=== PATIENT | male | born 1950 | race Caucasian/White ===

== ENCOUNTER 2022-01-08 11:03 | Inpatient (IN) | payer MEDICARE, BC ==
[~2022-01-08] VITALS: Ht 175.3 cm; Wt 68.0 kg
[2022-01-08] MEDS ORDERED: ATOR80TA PO (11:17)
[2022-01-08] MEDS ORDERED: ROBAXIN PO (11:17)
[2022-01-08] MEDS ORDERED: SERT100T PO (11:17)
[2022-01-08] MEDS ORDERED: SENN-18 PO (11:17)
[2022-01-08] MEDS ORDERED: LAMO150T6 PO (11:17)
[2022-01-08] MEDS ORDERED: ASPI-612 PO (11:17)
[2022-01-08] MEDS ORDERED: OXYC10TA49 PO (11:17)
[2022-01-08] MEDS ORDERED: DULA1.5P SQ (11:17)
[2022-01-08] MEDS ORDERED: LOSA50TA39 PO (11:17)
[2022-01-08] MEDS ORDERED: METF-441 PO (11:17)
[2022-01-08] MEDS ORDERED: OMEP40CA21 PO (11:17)
[2022-01-08] MEDS ORDERED: QUET100T PO (11:17)
--- NOTE | 2022-01-08 12:03 | NUR ---
Called report to BERTRAM Meza
[2022-01-08] MEDS ORDERED: MAGNESIUM HYDROXIDE 30 ML LIQUID UDC PO PRN (12:45)
[2022-01-08] MEDS ORDERED: MAG HYDROX/AL HYDROX/SIMETH 30 ML LIQUID UDC PO PRN (12:45)
[2022-01-08] MEDS ORDERED: BLOOD SUGAR DIAGNOSTIC 1 EACH STRIP VI ONE (13:00)
[2022-01-08] MEDS ORDERED: DEXTROSE 50% 50 ML DISP.SYRIN IV PRN (14:45)
[2022-01-08] MEDS ORDERED: METH-806 PO (14:45)
[2022-01-08 16:03] VITALS: BP 138/79
--- NOTE | 2022-01-08 16:54 | NUR ---
GPS: RECEIVED A REPORT FROM BERTRAM CHACON AT ER ABOUT THE 71YO MALE FROM [facility] FROM HOME. PT ADMITTED ON 5150 FOR GRAVE DISABILITY. PER PT, HE ADMITTED LOSING OVER 50LBS DUE TO PT BELIEFS WHICH ARE BIZARRE DELUSIONS. 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 PT CAME 1400 FROM ER, UPON FACE TO FACE, PT IS ABLE TO ANSWER SOME QUESTIONS REGARDING HIS SUBSTANCE ABUSE USE, DATE HE USED [place] WAS YESTERDAY 01/07/22. PT WITH EPISODE OF CONFUSION, DISORIENTED TO PLACE AND DATE. PT THOUGHT HE'S AT [facility]. PT SEEMS FORGETFUL, RE-ORIENTED ALWAYS TO HIS ROOM. GETTING TO OTHER PT ROOM AND GETTING OTHER PT STUFF. PT SEEMS PARANOID AND GUARDED. PT CAME TELLING CUFF MATCHER THAT, "I HAVE TO BE AT HOME NOW BECAUSE I HAVE TO PREPARE FOR A GREEN PARTY AND PEOPLE ARE COMING TO MY HOUSE. NOT FOCUS TO CONVERSATION. PT SKIN INTACT, PRECAUTION TO AWOL. WALKS STEADY. PT IS ON FULL CODE. PSYCHIATRIST SEEN PT ALREADY AND WOMEN'S LACROSSE COACH MADE AWARE. PT RIGHT HAND BOOKLET GIVEN AND ADMISSION FORMS SIGNED AND ALL BELONGINGS INVENTORIED AND CONTRABANDS REMOVED AND VALUABLES PLACED IN SAFE.
[2022-01-08] MEDS: DIVALPROEX 250 MG TABLET.DR PO SCH ×2 (17:00→17:52)
[2022-01-08] MEDS: BLOOD SUGAR DIAGNOSTIC 1 EACH STRIP VI SCH ×2 (17:52→20:22)
[2022-01-08] MEDS: ASPIRIN 325 MG TABLET PO SCH (17:52)
[2022-01-08] MEDS: METFORMIN HCL 850 MG TABLET PO SCH (17:53)
--- NOTE | 2022-01-08 18:38 | NUR ---
GPS: PT ALREADY GIVEN THE DEPAKOTE DOSE AT 1700 FOR SCHEDULE TIME OF 1400. NON-ADMIN THE 1700 SCHEDULE.
[2022-01-08 19:56] VITALS: BP 134/70
[2022-01-08] MEDS ORDERED: OLANZAPINE 10 MG VIAL IM ONE (20:00)
[2022-01-08] MEDS: ATORVASTATIN 40 MG TABLET PO SCH (20:22)
[2022-01-08] MEDS: SENNOSIDES 1 TABLET PO SCH (20:25)
[2022-01-08] MEDS: TEMAZEPAM 7.5 MG CAPSULE PO PRN (20:26)
[2022-01-08] MEDS ORDERED: LAMOTRIGINE 100 MG TABLET PO SCH (21:00)
[2022-01-08] MEDS ORDERED: QUETIAPINE FUMARATE 25 MG TABLET PO SCH (21:00)
[2022-01-09] MEDS: LORAZEPAM 0.5 MG TABLET PO PRN ×3 (00:35→16:40)
[2022-01-09] MEDS: QUETIAPINE FUMARATE 25 MG TABLET PO PRN ×3 (00:36→20:04)
--- NOTE | 2022-01-09 04:40 | NUR ---
Received patient in the hallway, looking unkempt, restless, and pacing the hallway going in from room to room. Patient A&0x2. Remind patient of the unit rules, unable to comprehend instructions d/t manifestation of manic behavior. Patient going in to the trash and making delusional comments about him waiting for a police cadet and asks the telegraphic typewriter operator chief to dial 911 in manic state. Redirect patient to realistic environment, also remind patient that actions have set limits. Patient in incongruent and labile mood. Patient at 2000, manic behavior is observed to be escalating as patient starts to bother other peers putting them at risk for harm. Patient also shows aggressive and increasing restless behavior. attempt to talk to patient in calm and non- threatening manner, however patient appears confused and incoherent. @2030 Consultation with the psychiatrist done with report of the current patients condition of high potential for violence and threatening physical harm to environment w/c could lead to injury. then Orders for Zyprexa 5mg IM x1 stat. Explained to patient the need for medication intervention for the behavior as per DrColins order, patient understanding of the plan. Zyprexa 5mg Im then given to patient. @2200 Patient starts to calm down, cooperative and went on to rest and sleeps. @2300 patient gets out bed and strolling the hallway trying to go in the nurse's station. Place patient to a safe area. Patient appears to be more re-directable at this time. Patient also agrees to shower. Patient was led back to his room to rest, however after 20 minutes was found wandering in the room going from BED A TO BED C disturbing his sleeping peers. Switch room from 145B to 141B. Patient given Ativan prn. Patient appears to have unsteady gait so placed to [facility] for safety. @0415 patient went to his room w/ the telegraphic typewriter operator chief and other nurse, patient made a hypersexual comment. Remind patient such comment will not be tolerated. @0430 observed patient to be sleeping in his room.
[2022-01-09] MEDS: PANTOPRAZOLE SODIUM 40 MG TABLET.DR PO SCH (06:06)
[2022-01-09] MEDS: BLOOD SUGAR DIAGNOSTIC 1 EACH STRIP VI SCH ×4 (06:30→20:12)
[2022-01-09 07:43] LABS: HEMATOCRIT 46.2 % (36.7-47.1); MEAN CORPUSCULAR HEMOGLOBIN 31.7 uug (23.8-33.4); MEAN CORPUSCULAR VOLUME 91.7 fL (73.0-96.2); PLATELET COUNT (AUTO) 160 K/uL (152-348)
[2022-01-09 07:49] LABS: CREATININE 0.7 mg/dL (0.6-1.3); POTASSIUM 4.2 mmol/L (3.5-5.1)
[2022-01-09] MEDS: DIVALPROEX 250 MG TABLET.DR PO SCH ×3 (08:05→16:40)
[2022-01-09] MEDS: METFORMIN HCL 850 MG TABLET PO SCH ×2 (08:05→18:00)
[2022-01-09] MEDS: LOSARTAN POTASSIUM 50 MG TABLET PO SCH (08:06)
[2022-01-09] MEDS: ASPIRIN 325 MG TABLET PO SCH (08:07)
[2022-01-09 08:47] VITALS: BP 141/60
--- NOTE | 2022-01-09 09:27 | NUR ---
pt received ambulating unit hallway. Confused and disoriented. Hypersexual with speech content. Manic and labile. Pt requires frequent redirection and reorientation.
[2022-01-09] MEDS: risperiDONE 1 MG TABLET PO SCH ×2 (10:35→20:04)
[2022-01-09] MEDS: INSULIN REGULAR, HUMAN 300 UNIT/3 ML VIAL SQ PRN (12:00)
[2022-01-09] MEDS ORDERED: OLANZAPINE 5 MG TABLET PO ONE (12:00)
--- NOTE | 2022-01-09 15:12 | NUR ---
PUNEET Initial Discharge Note: Pt is admitted to [facility] on a 5250 hold for unable to take care of own food, clothing or residential. Pt currently resides at [address] [place] [address]. PUNEET will continue to follow-up with pt's family contact for further information regarding pt's current status and discharge plan. Pt's face sheet states pt has a , Casie ([phone]), however pt is unable to confirm contact information. PUNEET will continue to work with pt, family and MD to ensure a safe and proper discharge plan.
--- NOTE | 2022-01-09 15:19 | NUR ---
Firearms Report: Rat Poisoner completed and submitted a [employer] firearms report for 5150 grave disability certifications. A copy of report has been placed in patient chart.
[2022-01-09 16:00] VITALS: BP 129/69
[2022-01-09 19:45] VITALS: BP 145/67
[2022-01-09] MEDS: ATORVASTATIN 40 MG TABLET PO SCH (20:04)
[2022-01-09] MEDS: SENNOSIDES 1 TABLET PO SCH (20:04)
[2022-01-09] MEDS: TEMAZEPAM 7.5 MG CAPSULE PO PRN (22:38)
[2022-01-10] MEDS: LORAZEPAM 0.5 MG TABLET PO PRN ×2 (03:05→10:17)
--- NOTE | 2022-01-10 03:06 | NUR ---
GPS: Pt.awake at this time. Confused,disoriented and disorganized. Anxious and starting to wander along the hallway. Reality re-orientation provided. Re-directed prn. Assisted back to his room and encouraged to go back to sleep. Ativan 0.5mg given PO. Will monitor effectiveness. Unit rules explained several times.
[2022-01-10] MEDS: QUETIAPINE FUMARATE 25 MG TABLET PO PRN ×2 (05:19→16:05)
[2022-01-10] MEDS: PANTOPRAZOLE SODIUM 40 MG TABLET.DR PO SCH (06:02)
[2022-01-10] MEDS: BLOOD SUGAR DIAGNOSTIC 1 EACH STRIP VI SCH ×4 (06:24→19:53)
[2022-01-10 07:58] VITALS: BP 141/82
[2022-01-10] MEDS: risperiDONE 1 MG TABLET PO SCH ×2 (08:01→20:03)
[2022-01-10] MEDS: ASPIRIN 325 MG TABLET PO SCH (08:01)
[2022-01-10] MEDS: METFORMIN HCL 850 MG TABLET PO SCH ×2 (08:01→18:05)
[2022-01-10] MEDS: LOSARTAN POTASSIUM 50 MG TABLET PO SCH (08:01)
[2022-01-10] MEDS: DIVALPROEX 250 MG TABLET.DR PO SCH ×3 (08:01→16:05)
[2022-01-10] MEDS: GLUCERNA SHAKE VANILLA 237 ML CAN PO SCH (10:00)
[2022-01-10 14:34] VITALS: BP 95/59
[2022-01-10 19:29] VITALS: BP 136/75
[2022-01-10] MEDS: SENNOSIDES 1 TABLET PO SCH (20:03)
[2022-01-10] MEDS: ATORVASTATIN 40 MG TABLET PO SCH (20:03)
[2022-01-10] MEDS: TEMAZEPAM 7.5 MG CAPSULE PO PRN (21:38)
[2022-01-11] MEDS: QUETIAPINE FUMARATE 25 MG TABLET PO PRN (02:40)
[2022-01-11] MEDS: BLOOD SUGAR DIAGNOSTIC 1 EACH STRIP VI SCH ×4 (05:54→20:02)
[2022-01-11] MEDS: PANTOPRAZOLE SODIUM 40 MG TABLET.DR PO SCH (06:06)
[2022-01-11 08:04] VITALS: BP 131/72
[2022-01-11] MEDS: METFORMIN HCL 850 MG TABLET PO SCH ×2 (08:25→17:02)
[2022-01-11] MEDS: LOSARTAN POTASSIUM 50 MG TABLET PO SCH (08:25)
[2022-01-11] MEDS: DIVALPROEX 250 MG TABLET.DR PO SCH ×3 (08:26→17:00)
[2022-01-11] MEDS: risperiDONE 1 MG TABLET PO SCH ×2 (08:27→20:09)
[2022-01-11] MEDS: GLUCERNA SHAKE VANILLA 237 ML CAN PO SCH (08:28)
[2022-01-11] MEDS: ASPIRIN 325 MG TABLET PO SCH (08:33)
--- NOTE | 2022-01-11 15:16 | NUR ---
patient is Needs intrusive needs frequent constant re-direction and re-assurance from staff at all time . No aggressive behavior noted. stay in activity room at all time , compliant with medication , confused and disoriented with poor insight and poor judgement .
[2022-01-11 16:34] VITALS: BP 123/72
[2022-01-11 19:45] VITALS: BP 128/68
[2022-01-11] MEDS: ATORVASTATIN 40 MG TABLET PO SCH (20:09)
[2022-01-11] MEDS: SENNOSIDES 1 TABLET PO SCH (20:10)
[2022-01-11] MEDS: TEMAZEPAM 7.5 MG CAPSULE PO PRN (21:52)
[2022-01-12] MEDS: QUETIAPINE FUMARATE 25 MG TABLET PO PRN (01:36)
[2022-01-12] MEDS: LORAZEPAM 0.5 MG TABLET PO PRN (01:36)
[2022-01-12] MEDS: PANTOPRAZOLE SODIUM 40 MG TABLET.DR PO SCH (06:06)
[2022-01-12] MEDS: BLOOD SUGAR DIAGNOSTIC 1 EACH STRIP VI SCH ×4 (06:06→20:35)
--- NOTE | 2022-01-12 06:24 | NUR ---
GPS: Pt.slept 4.30 last night. Anxious,disorganized but easily re-directed. No aggressive behavior noted. Safety emphasized. Will continue to monitor.
[2022-01-12 07:54] VITALS: BP 135/87
[2022-01-12] MEDS: METFORMIN HCL 850 MG TABLET PO SCH ×2 (08:24→17:19)
[2022-01-12] MEDS: ASPIRIN 325 MG TABLET PO SCH (08:24)
[2022-01-12] MEDS: DIVALPROEX 250 MG TABLET.DR PO SCH ×3 (08:24→17:19)
[2022-01-12] MEDS: risperiDONE 1 MG TABLET PO SCH ×2 (08:24→12:25)
[2022-01-12] MEDS: GLUCERNA SHAKE VANILLA 237 ML CAN PO SCH (08:25)
[2022-01-12] MEDS: LOSARTAN POTASSIUM 50 MG TABLET PO SCH (08:25)
[2022-01-12] MEDS ORDERED: risperiDONE 1 MG TABLET PO SCH ×2 (13:00→21:00)
[2022-01-12 14:36] VITALS: BP 117/72
--- NOTE | 2022-01-12 15:43 | NUR ---
received patient is Needs intrusive needs argument frequent constant re-direction and re-assurance from staff at all time . No aggressive behavior noted. stay in activity room at all time , compliant with medication , confused and disoriented with poor insight and poor judgement .
[2022-01-12] MEDS: INSULIN REGULAR, HUMAN 300 UNIT/3 ML VIAL SQ PRN (17:21)
[2022-01-12 19:00] VITALS: BP 114/64
[2022-01-12 20:00] VITALS: BP 114/64
[2022-01-12] MEDS: ATORVASTATIN 40 MG TABLET PO SCH (20:34)
[2022-01-12] MEDS: SENNOSIDES 1 TABLET PO SCH (20:34)
--- NOTE | 2022-01-12 21:00 | NUR ---
RECEIVED PATIENT IN THE DAY ROOM WATCHING TV. UPON APPROACHED, HE IS NOTED HYPERVERBAL, GRANDIOSE DELUSIONAL THINKING. 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 WE ARE WORKING ON A FEW BIG CASES THAN ARE GOING TO BLOW YOUR MIND. IT WILL BE BIG". PATIENT WAS ALSO NOTED WITH POOR INSIGHT AND JUDGMENT, "I AM HERE BECAUSE THEY BROUGHT ME AGAINST MY WILL. I AM NOT SUPPOSED TO BE HERE AND I WILL LEAVE SOON". PATIENT WAS REASSURED AND GIVEN A REALITY CHECKS. SAFETY AND FALL PRECAUTION IN PLACE. PO FLUID AND SNACKS GIVEN. BGL ACCU CHECK DONE 106. WILL CONTINUE TO MONITOR.
[2022-01-13 07:18] LABS: HEMATOCRIT 42.7 % (36.7-47.1); MEAN CORPUSCULAR HEMOGLOBIN 32.2 uug (23.8-33.4); MEAN CORPUSCULAR VOLUME 91.2 fL (73.0-96.2); PLATELET COUNT (AUTO) 127 K/uL (152-348)
[2022-01-13 07:41] LABS: BILIRUBIN,TOTAL 0.9 mg/dL (0.2-1.0); CREATININE 0.7 mg/dL (0.6-1.3); TOTAL PROTEIN, SERUM 6.6 g/dL (6.4-8.2)
[2022-01-13] MEDS: BLOOD SUGAR DIAGNOSTIC 1 EACH STRIP VI SCH ×3 (07:41→16:22)
[2022-01-13] MEDS: PANTOPRAZOLE SODIUM 40 MG TABLET.DR PO SCH (07:41)
[2022-01-13 08:33] VITALS: BP 132/72
[2022-01-13] MEDS: DIVALPROEX 250 MG TABLET.DR PO SCH ×3 (08:52→17:30)
[2022-01-13] MEDS: METFORMIN HCL 850 MG TABLET PO SCH ×2 (08:52→17:30)
[2022-01-13] MEDS: risperiDONE 1 MG TABLET PO SCH ×2 (08:52→12:25)
[2022-01-13] MEDS: ASPIRIN 325 MG TABLET PO SCH (08:52)
[2022-01-13] MEDS: LOSARTAN POTASSIUM 50 MG TABLET PO SCH (08:53)
--- NOTE | 2022-01-13 09:00 | NUR ---
Received patient in the day room. he is noted A/O x 3, continue hyperverbal, grandiose, attention seeker with poor insight and judgement into his admission to MHU. Patient slept for approx 3.15 hr through the night. he refused sleeping pill last night. However, patient is able to comply with all his routine medications. Patient v/s are stable, he is reassured for his safety. safety and fall precaution in place. will continue to monitor.
[2022-01-13] MEDS: GLUCERNA SHAKE VANILLA 237 ML CAN PO SCH (09:03)
[2022-01-13 16:01] VITALS: BP 145/70
[2022-01-13] MEDS: SENNOSIDES 1 TABLET PO SCH (20:54)
[2022-01-13] MEDS: ATORVASTATIN 20 MG TABLET PO SCH (20:54)
[2022-01-13] MEDS: risperiDONE 2 MG TABLET PO SCH (20:54)
[2022-01-13 20:57] VITALS: BP 110/65
[2022-01-13] MEDS ORDERED: risperiDONE 1 MG TABLET PO SCH (21:00)
[2022-01-13] MEDS: LORAZEPAM 0.5 MG TABLET PO PRN (22:34)
--- NOTE | 2022-01-14 01:58 | NUR ---
PATIENT RECEIVED IN ACTIVITIES ROOM WATCHING TELEVISION AND INTERACTING WITH HIS PEERS. PATIENT IS ALERT/ORIENTED X3 AND IS ABLE TO MAKE HIS NEEDS KNOWN. PATIENT IS COMPLAINT WITH MEDICATION. PATIENT IS HYPERVERBAL AT TIMES. PATIENT IN NO APPARENT DISTRESS, NO AGGRESSIVE BEHAVIOR NOTED, AND PATIENT DENIES PAIN AT THIS TIME. SAFETY MEASURES RENDERED, BED IN LOWEST POSITION, BED LOCKED, AND BED ALARM ON WHILE IN BED.
[2022-01-14] MEDS: PANTOPRAZOLE SODIUM 40 MG TABLET.DR PO SCH (06:23)
[2022-01-14] MEDS: DIVALPROEX 250 MG TABLET.DR PO SCH ×2 (08:14→13:09)
[2022-01-14] MEDS: LOSARTAN POTASSIUM 50 MG TABLET PO SCH (08:14)
[2022-01-14] MEDS: risperiDONE 1 MG TABLET PO SCH ×3 (08:14→17:38)
[2022-01-14] MEDS: METFORMIN HCL 500 MG TABLET PO SCH ×2 (08:14→17:38)
[2022-01-14] MEDS: GLUCERNA SHAKE VANILLA 237 ML CAN PO SCH (08:15)
[2022-01-14] MEDS: ASPIRIN 325 MG TABLET PO SCH (08:15)
[2022-01-14 08:45] VITALS: BP 148/81
--- NOTE | 2022-01-14 09:40 | NUR ---
GPS: RECEIVED PT AT THE ACTIVITY ROOM, LIKES WATCHING TV AND HAVING CONVERSATION WITH PEERS. PARTICIPATES WITH GROUP ACTIVITY. PT WITH EPISODE OF YELLING WHEN OTHER CONFUSED PT WENT INTO HIS ROOM. DENIES ANY PAIN. COMPLIANT WITH MEDS AND CARE.
[2022-01-14 16:00] VITALS: BP 114/70
[2022-01-14] MEDS: DIVALPROEX 500 MG TABLET.DR PO SCH (17:38)
--- NOTE | 2022-01-14 18:09 | NUR ---
GPS: PT LIKES STAYING IN ACTIVITY ROOM WATCHING TV. PT LIKES COMPLAINING WITH OTHER PT. PT ATTENTION SEEKER. VERY INTRUSIVE. PT HAD A [facility] HEARING TODAY 5250 14 DAY HOLD AND PT FILED A WRIT PETITION TO SUPERIOR COURT AT 1620 THROUGH FAX. PSYCHIATRIST AND RAVEN MADE AWARE. NO NEW ORDER FROM PSYCHIATRIST.
[2022-01-14 19:43] VITALS: BP 118/75
[2022-01-14] MEDS: SENNOSIDES 1 TABLET PO SCH (20:07)
[2022-01-14] MEDS: ATORVASTATIN 20 MG TABLET PO SCH (20:07)
[2022-01-14] MEDS: risperiDONE 2 MG TABLET PO SCH (20:07)
[2022-01-14] MEDS: TEMAZEPAM 7.5 MG CAPSULE PO PRN (22:09)
[2022-01-15] MEDS: PANTOPRAZOLE SODIUM 40 MG TABLET.DR PO SCH (06:30)
[2022-01-15 08:08] VITALS: BP 134/71
[2022-01-15] MEDS: METFORMIN HCL 500 MG TABLET PO SCH ×2 (08:44→16:53)
[2022-01-15] MEDS: ASPIRIN 325 MG TABLET PO SCH (08:45)
[2022-01-15] MEDS: DIVALPROEX 250 MG TABLET.DR PO SCH ×2 (08:45→13:45)
[2022-01-15] MEDS: LOSARTAN POTASSIUM 50 MG TABLET PO SCH (08:45)
[2022-01-15] MEDS: risperiDONE 1 MG TABLET PO SCH ×3 (08:45→16:51)
[2022-01-15] MEDS: GLUCERNA SHAKE VANILLA 237 ML CAN PO SCH (08:46)
--- NOTE | 2022-01-15 11:38 | NUR ---
SNF Referral: Marketing Research Coordinator faxed patient's referral packet including: History and Physical, Consultation, Progress Notes, Medication List and Labs to the following facilities for review and possible mcc placement: [facility] nursing [address] [address] .
--- NOTE | 2022-01-15 14:13 | NUR ---
PUNEET Firearms Police Report: This feature writer contacted the [place] [employer] ([phone]) and spoke with dispatch ID #[id number] and stated that the pt's daughter informed the SW that the pt's roommate has a firearm in the house. Glendy stated that she last heard the pt stating to her that the gun is unlocked and accessible. Glendy also reported that she is concerned for the pt using the firearm in the future since pt has verbalized to Glendy of danger to self 9 years ago. PUNEET stated this information to the Police station and informed that Glendy is concerned for the firearm as she cannot confirm if the gun is locked or unlocked. Dispatch #[id number] stated that they are familiar with this case and police were sent to pt's address [address] [place] [id number] and the police did not book any firearms as there were no concerns reported per dispatch. PUNEET asked to speak with a superintendent police for further information and dispatch stated this is the only documented information available. PUNEET informed MD, day care supervisor and left a voicemail for a call back for pt's daughter, Glendy ([phone]) for further information and discharge details.
[2022-01-15 16:26] VITALS: BP 110/55
[2022-01-15] MEDS: DIVALPROEX 500 MG TABLET.DR PO SCH (16:51)
--- NOTE | 2022-01-15 17:33 | NUR ---
GPS: PT WRIT PETITION FORM CONFIRMATION RECEIVED THROUGH FAX MESSAGE. STAFF FROM [facility] CALLED TO NOTIFY ABOUT THE HEARING TOMORROW. INFORMED STAFF THAT PT WILL BE DISCHARGE TOMORROW PER DR FERRARA. [facility] MADE AWARE AND RAVEN ALSO NOTIFIED. CONFIRMATION FORM ATTACHED IN PT CHART.
--- NOTE | 2022-01-15 17:36 | NUR ---
PT SEEN STAYED MOST OF THE TIME AT THE ACTIVITY ROOM WITH OTHER PT WATCHING TV. PACING ALONG THE HALLWAY, MAKING HIMSELF PRESENT FROM THE STAFF. SOMETIMES ATTENTION SEEKER. NO AGITATION NOTED AT THIS TIME. DENIES PAIN OR DISCOMFORT. COMPLIANT WITH MEDS. PT REFUSED TAKING A SHOWER AFTER STAFF OFFERED IT.
[2022-01-15 20:00] VITALS: BP 114/62
[2022-01-15] MEDS: risperiDONE 2 MG TABLET PO SCH (20:13)
[2022-01-15] MEDS: SENNOSIDES 1 TABLET PO SCH (20:13)
[2022-01-15] MEDS: ATORVASTATIN 20 MG TABLET PO SCH (20:13)
[2022-01-15] MEDS: TEMAZEPAM 7.5 MG CAPSULE PO PRN (20:14)
[2022-01-16] MEDS: LORAZEPAM 0.5 MG TABLET PO PRN (01:29)
[2022-01-16] MEDS: PANTOPRAZOLE SODIUM 40 MG TABLET.DR PO SCH (06:13)
--- NOTE | 2022-01-16 06:23 | NUR ---
GPS NOTES: patient remain compliant with medications. PRN restoril and ativan given with semi-effectivity. Patient to be d/c today. Covid robinson done with negative result
[2022-01-16 07:38] VITALS: BP 123/64
[2022-01-16 08:37] VITALS: BP 123/64
[2022-01-16] MEDS: METFORMIN HCL 500 MG TABLET PO SCH (08:37)
[2022-01-16] MEDS: DIVALPROEX 250 MG TABLET.DR PO SCH (08:37)
[2022-01-16] MEDS: ASPIRIN 325 MG TABLET PO SCH (08:37)
[2022-01-16] MEDS: risperiDONE 1 MG TABLET PO SCH (08:37)
[2022-01-16] MEDS: GLUCERNA SHAKE VANILLA 237 ML CAN PO SCH (08:37)
[2022-01-16] MEDS: LOSARTAN POTASSIUM 50 MG TABLET PO SCH (08:37)
--- NOTE | 2022-01-16 09:44 | NUR ---
SW Discharge Note: Pt will be discharged to [facility] [address] [place] [address] ([phone]) via Ambulance transportation at 11AM. PUNEET spoke with admin coordinator, Dakota at the facility who states they are ready to accept the patient today. Pt is aware and agreeable with discharge plans. Pts daughter, Glendy ([phone]) is aware and agreeable with the discharge plan. Pt is alert and oriented x2(name and location), is unable to plan for self-care at this time; however, is willing to accept care at SNF. Pt is aware he is in a hospital, however pt needs constant reminder that pt is in a mental health unit. Pt denies any suicidal or homicidal ideation. Pt will follow-up at the facility with Psychiatrist, Dr. Rahman and Final Cleaner, Dr. Galvez. Pts daughter, Glendy informed SW that pt also has an outpatient psychiatrist, Dr. Celso Ray ([phone]) in [facility] who is a very familiar with pts hx. Pt presents with calm mood and congruent affect. PHARMACY: [facility] ([phone]) [address] [place] [address].
--- NOTE | 2022-01-16 11:36 | NUR ---
GPS: PT WAD DISCHARGE TODAY AND WILL BE ADMITTED TO [facility]. PICKED UP BY AMBULANCE. ALERT AND VERBALLY RESPONSIVE. SKIN INTACT. DENIES PAIN OR DISCOMFORT. NO AGITATION NOTED. PT COOPERATIVE WITH CARE AND COMPLIANT WITH MEDS. ALL BELONGINGS GIVEN AND SIGNED FOR. ENDORSED TO SNF ADMITTING NURSE. PT WILL BE EXPECTED.
== END 2022-01-16 11:40 | DRG 885 ==
LOC: ER 11:03 → GPS 12:14
PROVIDERS: ADMIT Psychiatry & Neurology Psychosomatic Medicine
DX: F25.0 Schizoaffective disorder, bipolar type (principal); F01.50 Vascular dementia, unspecified severity, without behavioral disturbance, psychotic disturbance, mood disturbance, and anxiety; E11.9 Type 2 diabetes mellitus without complications; Z79.899 Other long term (current) drug therapy; Z79.84 Long term (current) use of oral hypoglycemic drugs; E78.5 Hyperlipidemia, unspecified; I10 Essential (primary) hypertension; F17.210 Nicotine dependence, cigarettes, uncomplicated; Z91.19 Patient's noncompliance with other medical treatment and regimen; F12.90 Cannabis use, unspecified, uncomplicated; Z79.82 Long term (current) use of aspirin; Z20.822 Contact with and (suspected) exposure to COVID-19
CPT/HCPCS: 36415; 70450; 80164; 85025; 93005; 97161; A4663; J1815; J2358; J3490

== ENCOUNTER 2023-06-06 23:32 | Inpatient (IN) | payer MEDICARE, BC ==
[~2023-06-06] VITALS: Ht 167.6 cm; Wt 80.3 kg
[~2023-06-06 23:32] MED LIST: ASPI-612 PO; ATOR80TA PO; DULA1.5P SQ; LOSA50TA39 PO; METF-441 PO; METH-806 PO; OMEP40CA21 PO; OXYC10TA49 PO; SENN-18 PO
[2023-06-06] MEDS ORDERED: EMPA25TA PO (23:44)
[2023-06-06] MEDS ORDERED: NICO10CA IH (23:44)
[2023-06-06] MEDS ORDERED: METF-440 PO (23:44)
[2023-06-06] MEDS ORDERED: LAMO25TA16 PO (23:44)
[2023-06-06] MEDS ORDERED: RISP0.5T65 PO (23:57)
[2023-06-06] MEDS ORDERED: TRIA0.2585 PO (23:57)
[2023-06-06] MEDS ORDERED: SERT100T PO (23:57)
[2023-06-06] MEDS ORDERED: QUET50TA PO (23:57)
[2023-06-07 05:30] VITALS: BP 152/76; TEMP 98.1; O2SAT 99
[2023-06-07] MEDS ORDERED: MAGNESIUM HYDROXIDE 30 ML LIQUID UDC PO PRN (05:30)
[2023-06-07] MEDS ORDERED: MAG HYDROX/AL HYDROX/SIMETH 30 ML LIQUID UDC PO PRN (05:30)
[2023-06-07] MEDS ORDERED: BLOOD SUGAR DIAGNOSTIC 1 EACH STRIP VI ONE (05:30)
[2023-06-07] MEDS: LORAZEPAM 0.5 MG TABLET PO PRN (06:06)
[2023-06-07 08:00] VITALS: BP 146/86; TEMP 98
[2023-06-07] MEDS: NICOTINE 7 MG/24HR PATCH TD SCH (09:00)
[2023-06-07] MEDS ORDERED: SENNOSIDES 1 TABLET PO PRN (11:15)
[2023-06-07] MEDS: risperiDONE-M 0.5 MG TAB.RAPDIS PO SCH ×2 (14:39→18:03)
[2023-06-07 16:00] VITALS: BP 149/49; TEMP 97.8
[2023-06-07] MEDS ORDERED: Medication Not On Formulary EA (Lamotrigine 1 TAB) PO SCH (17:00)
[2023-06-07] MEDS: METFORMIN HCL 500 MG TABLET PO SCH (18:42)
[2023-06-07] MEDS: ATORVASTATIN 40 MG TABLET PO SCH (20:53)
[2023-06-07] MEDS ORDERED: risperiDONE-M 0.5 MG TAB.RAPDIS PO SCH (21:00)
[2023-06-07] MEDS: TEMAZEPAM 7.5 MG CAPSULE PO PRN (22:50)
[2023-06-08 01:20] VITALS: BP 156/61; TEMP 98.2; O2SAT 99
[2023-06-08] MEDS ORDERED: OXYC10TA59 PO (07:21)
[2023-06-08] MEDS ORDERED: LAMO25TA16 PO (07:23)
[2023-06-08] MEDS ORDERED: NALOXONE HCL 0.4 MG/ML AMPUL IV PRN (07:30)
[2023-06-08 08:00] VITALS: BP 152/78; TEMP 98.1
[2023-06-08] MEDS: METFORMIN HCL 500 MG TABLET PO SCH ×2 (08:00→09:13)
[2023-06-08 08:37] LABS: ALANINE AMINOTRANSFERASE 18 U/L (16-63); ALBUMIN 3.7 g/dL (3.4-5.0); ALKALINE PHOSPHATASE 56 U/L (50-136); ASPARTATE AMINOTRANSFERASE 8 U/L (15-37); BILIRUBIN,TOTAL 0.5 mg/dL (0.2-1.0); CALCIUM 9.4 mg/dL (8.5-10.1); CARBON DIOXIDE 29 mmol/L (21-32); CHLORIDE 104 mmol/L (98-107); CREATININE 0.7 mg/dL (0.6-1.3); GLUCOSE 147 mg/dL (74-106); POTASSIUM 4.1 mmol/L (3.5-5.1); SODIUM SERUM 139 mmol/L (136-145); TOTAL PROTEIN, SERUM 7.4 g/dL (6.4-8.2); UREA NITROGEN, BLOOD 11 mg/dL (7-18)
[2023-06-08] MEDS: NICOTINE 7 MG/24HR PATCH TD SCH (09:00)
[2023-06-08] MEDS: LOSARTAN POTASSIUM 50 MG TABLET PO SCH ×2 (09:00→09:08)
[2023-06-08] MEDS: LAMOTRIGINE 25 MG TABLET PO SCH ×2 (09:00→09:08)
[2023-06-08] MEDS: ASPIRIN 325 MG TABLET PO SCH ×2 (09:00→09:07)
[2023-06-08] MEDS: risperiDONE-M 0.5 MG TAB.RAPDIS PO SCH ×3 (09:08→20:45)
[2023-06-08] MEDS: EMPAGLIFLOZIN 25 MG TABLET PO SCH ×2 (09:09→09:18)
[2023-06-08] MEDS: OXYCODONE HCL 10 MG TAB.SR.12H PO SCH ×2 (09:11→20:47)
[2023-06-08 14:03] LABS: *BILIRUBIN,URIN NEGATIVE (NEGATIVE); *BLOOD, URINE NEGATIVE (NEGATIVE); *CLARITY,URINE CLEAR (CLEAR); *COLOR,URINE YELLOW (YELLOW); *KETONES,URINE NEGATIVE (NEGATIVE); *PROTEIN,URINE NEGATIVE (NEGATIVE); *UROBILINOGEN,URINE 0.2 E.U./dl (NORMAL); LEUKOCYTE ESTERASE ,URINE NEGATIVE (NEGATIVE); NITRITE, URINE NEGATIVE (NEGATIVE); PH,URINE 6.5 (5.0-8.0)
[2023-06-08 14:06] LABS: UGLUCOSE 2+ (NEGATIVE)
[2023-06-08 14:51] LABS: WBC,URINE 0-3 /HPF (0-3)
[2023-06-08 16:00] VITALS: BP 141/81; TEMP 97.9; O2SAT 100
[2023-06-08] MEDS: ATORVASTATIN 40 MG TABLET PO SCH (20:45)
[2023-06-08 21:32] VITALS: BP 140/65; TEMP 97.7; O2SAT 97
[2023-06-08] MEDS: TEMAZEPAM 7.5 MG CAPSULE PO PRN (22:32)
[2023-06-09 08:00] VITALS: BP 122/52; TEMP 97.7
[2023-06-09] MEDS: LOSARTAN POTASSIUM 50 MG TABLET PO SCH ×2 (08:45→09:00)
[2023-06-09] MEDS: ASPIRIN 325 MG TABLET PO SCH ×2 (08:45→09:00)
[2023-06-09] MEDS: risperiDONE-M 0.5 MG TAB.RAPDIS PO SCH ×3 (08:45→20:40)
[2023-06-09] MEDS: NICOTINE 7 MG/24HR PATCH TD SCH (08:46)
[2023-06-09] MEDS: OXYCODONE HCL 10 MG TAB.SR.12H PO SCH ×4 (08:46→21:48)
[2023-06-09] MEDS: LAMOTRIGINE 25 MG TABLET PO SCH ×2 (08:47→09:00)
[2023-06-09] MEDS: EMPAGLIFLOZIN 25 MG TABLET PO SCH ×2 (08:47→09:00)
[2023-06-09 16:00] VITALS: BP 138/64; TEMP 96.8
[2023-06-09] MEDS: ATORVASTATIN 40 MG TABLET PO SCH (20:39)
[2023-06-09 20:40] VITALS: BP 140/70; TEMP 98.3; O2SAT 98
[2023-06-10] MEDS: TEMAZEPAM 7.5 MG CAPSULE PO PRN ×2 (01:06→23:06)
[2023-06-10 08:00] VITALS: BP 136/81; TEMP 97.3; O2SAT 100
[2023-06-10] MEDS: risperiDONE-M 0.5 MG TAB.RAPDIS PO SCH ×3 (08:34→20:46)
[2023-06-10] MEDS: EMPAGLIFLOZIN 25 MG TABLET PO SCH (08:35)
[2023-06-10] MEDS: OXYCODONE HCL 10 MG TAB.SR.12H PO SCH ×2 (08:35→20:47)
[2023-06-10] MEDS: LOSARTAN POTASSIUM 50 MG TABLET PO SCH (08:35)
[2023-06-10] MEDS: NICOTINE 7 MG/24HR PATCH TD SCH (08:36)
[2023-06-10] MEDS: ASPIRIN 325 MG TABLET PO SCH (08:36)
[2023-06-10 16:00] VITALS: BP 117/81; TEMP 98.1; O2SAT 98
[2023-06-10] MEDS: OXCARBAZEPINE 150 MG TABLET PO SCH (16:33)
[2023-06-10 20:27] VITALS: BP 116/47; TEMP 97.9; O2SAT 95
[2023-06-10] MEDS: ATORVASTATIN 40 MG TABLET PO SCH (20:56)
[2023-06-11 08:00] VITALS: BP 114/64; TEMP 97.8; O2SAT 99
[2023-06-11] MEDS: ASPIRIN 325 MG TABLET PO SCH (09:00)
[2023-06-11] MEDS: NICOTINE 7 MG/24HR PATCH TD SCH (09:00)
[2023-06-11] MEDS: OXYCODONE HCL 10 MG TAB.SR.12H PO SCH ×2 (09:01→20:54)
[2023-06-11] MEDS: risperiDONE-M 0.5 MG TAB.RAPDIS PO SCH ×3 (09:02→20:54)
[2023-06-11] MEDS: OXCARBAZEPINE 150 MG TABLET PO SCH ×2 (09:02→16:18)
[2023-06-11] MEDS: LOSARTAN POTASSIUM 50 MG TABLET PO SCH (09:02)
[2023-06-11 16:07] VITALS: BP 121/82; TEMP 98; O2SAT 98
[2023-06-11 20:00] VITALS: BP 123/66; TEMP 98.5; O2SAT 100
[2023-06-11] MEDS: ATORVASTATIN 40 MG TABLET PO SCH (20:54)
[2023-06-12 07:30] LABS: BASOPHILS % (AUTO) 0.6 % (0.0-2.0); EOSINOPHILS # (AUTO) 0.1 K/uL (0.0-0.7); EOSINOPHILS % (AUTO) 2.2 % (0.0-7.0); HEMATOCRIT 44.3 % (36.7-47.1); HEMOGLOBIN 15.2 g/dL (12.5-16.3); LYMPHOCYTES # (AUTO) 1.4 K/uL (0.8-4.8); LYMPHOCYTES % (AUTO) 24.5 % (20.5-51.5); MEAN CORPUSCULAR HEMOGLOBIN 32.8 uug (23.8-33.4); MEAN CORPUSCULAR HGB CONC 34 g/dL (32.5-36.3); MEAN CORPUSCULAR VOLUME 95.7 fL (73.0-96.2); MONOCYTES # (AUTO) 0.5 K/uL (0.1-1.30); MONOCYTES % (AUTO) 8.4 % (0.0-11.0); NEUTROPHILS # (AUTO) 3.6 K/uL (1.8-8.9); NEUTROPHILS % (AUTO) 64.3 % (38.5-71.5); PLATELET COUNT (AUTO) 142 K/uL (152-348); RED BLOOD CELL COUNT(AUTO) 4.63 MIL/uL (4.06-5.63); RED CELL DISTRIBUTION WIDTH 14.1 % (12.1-16.2); WHITE BLOOD COUNT (AUTO) 5.7 K/uL (3.6-10.2)
[2023-06-12 07:39] LABS: DIFFERENTIAL COMMENT 1
[2023-06-12] MEDS: ASPIRIN 325 MG TABLET PO SCH (09:00)
[2023-06-12] MEDS: NICOTINE 7 MG/24HR PATCH TD SCH (09:00)
[2023-06-12 09:41] VITALS: BP 125/63; TEMP 97.7; O2SAT 98
[2023-06-12] MEDS: OXCARBAZEPINE 150 MG TABLET PO SCH ×2 (10:10→17:30)
[2023-06-12] MEDS: risperiDONE-M 0.5 MG TAB.RAPDIS PO SCH ×3 (10:10→20:25)
[2023-06-12] MEDS: OXYCODONE HCL 10 MG TAB.SR.12H PO SCH ×2 (10:10→20:28)
[2023-06-12] MEDS: LOSARTAN POTASSIUM 25 MG TABLET PO SCH (10:11)
[2023-06-12 16:02] VITALS: BP 113/56; TEMP 98.4; O2SAT 98
[2023-06-12 20:00] VITALS: BP 143/66; TEMP 98; O2SAT 97
[2023-06-12] MEDS: ATORVASTATIN 40 MG TABLET PO SCH (20:29)
[2023-06-13] MEDS: LORAZEPAM 0.5 MG TABLET PO PRN (03:37)
[2023-06-13 07:51] VITALS: BP 116/60; TEMP 98; O2SAT 99
[2023-06-13] MEDS: LOSARTAN POTASSIUM 25 MG TABLET PO SCH (08:42)
[2023-06-13] MEDS: ASPIRIN 325 MG TABLET PO SCH (08:42)
[2023-06-13] MEDS: OXCARBAZEPINE 150 MG TABLET PO SCH ×3 (08:42→16:14)
[2023-06-13] MEDS: risperiDONE-M 0.5 MG TAB.RAPDIS PO SCH ×3 (08:43→20:15)
[2023-06-13] MEDS: OXYCODONE HCL 10 MG TAB.SR.12H PO SCH ×2 (08:43→20:28)
[2023-06-13] MEDS: NICOTINE 7 MG/24HR PATCH TD SCH (08:44)
[2023-06-13 16:13] VITALS: BP 103/76; TEMP 97.8; O2SAT 98
[2023-06-13 20:00] VITALS: BP 127/60; TEMP 97.8; O2SAT 98
[2023-06-13] MEDS: ATORVASTATIN 40 MG TABLET PO SCH (20:21)
[2023-06-13] MEDS: TEMAZEPAM 7.5 MG CAPSULE PO PRN (22:43)
[2023-06-14] MEDS: LORAZEPAM 0.5 MG TABLET PO PRN (04:09)
[2023-06-14 07:49] VITALS: BP 124/60; TEMP 98.3; O2SAT 98
[2023-06-14] MEDS: ASPIRIN 325 MG TABLET PO SCH (08:32)
[2023-06-14] MEDS: risperiDONE-M 0.5 MG TAB.RAPDIS PO SCH ×3 (08:32→21:24)
[2023-06-14] MEDS: OXCARBAZEPINE 150 MG TABLET PO SCH ×3 (08:33→16:27)
[2023-06-14] MEDS: LOSARTAN POTASSIUM 25 MG TABLET PO SCH (08:33)
[2023-06-14] MEDS: NICOTINE 7 MG/24HR PATCH TD SCH (08:34)
[2023-06-14] MEDS: OXYCODONE HCL 10 MG TAB.SR.12H PO SCH ×2 (08:34→21:23)
[2023-06-14 17:16] VITALS: BP 117/58; TEMP 98.1; O2SAT 99
[2023-06-14 20:00] VITALS: BP 115/60; TEMP 98.2; O2SAT 95
[2023-06-14] MEDS: ATORVASTATIN 40 MG TABLET PO SCH (21:00)
[2023-06-15] MEDS: TEMAZEPAM 7.5 MG CAPSULE PO PRN (00:04)
[2023-06-15 07:57] VITALS: BP 139/68; TEMP 98.4; O2SAT 99
[2023-06-15] MEDS: ASPIRIN 325 MG TABLET PO SCH (08:28)
[2023-06-15] MEDS: OXYCODONE HCL 10 MG TAB.SR.12H PO SCH ×2 (08:29→20:32)
[2023-06-15] MEDS: OXCARBAZEPINE 150 MG TABLET PO SCH ×3 (08:30→17:17)
[2023-06-15] MEDS: risperiDONE-M 0.5 MG TAB.RAPDIS PO SCH ×3 (08:30→20:23)
[2023-06-15] MEDS: NICOTINE 7 MG/24HR PATCH TD SCH ×2 (08:30→08:42)
[2023-06-15] MEDS: LOSARTAN POTASSIUM 25 MG TABLET PO SCH (08:32)
[2023-06-15 15:03] VITALS: BP 125/64; TEMP 98.2; O2SAT 99
[2023-06-15 20:00] VITALS: BP 117/53; TEMP 97.4; O2SAT 97
[2023-06-15] MEDS: ATORVASTATIN 40 MG TABLET PO SCH (20:42)
[2023-06-16 08:04] VITALS: BP 126/69; TEMP 98; O2SAT 99
[2023-06-16] MEDS: NICOTINE 7 MG/24HR PATCH TD SCH (09:00)
[2023-06-16] MEDS: risperiDONE-M 0.5 MG TAB.RAPDIS PO SCH (09:13)
[2023-06-16] MEDS: ASPIRIN 325 MG TABLET PO SCH (09:13)
[2023-06-16] MEDS: LOSARTAN POTASSIUM 25 MG TABLET PO SCH (09:13)
[2023-06-16] MEDS: OXYCODONE HCL 10 MG TAB.SR.12H PO SCH (09:13)
[2023-06-16] MEDS: OXCARBAZEPINE 150 MG TABLET PO SCH ×2 (09:13→13:20)
[2023-06-16 15:07] VITALS: BP 125/54; TEMP 98; O2SAT 96
== END 2023-06-16 13:30 | DRG 885 ==
LOC: ER 23:37 → GPS 23:50
PROVIDERS: ADMIT Psychiatry & Neurology Psychosomatic Medicine; ATTEND Internal Medicine
DX: F25.0 Schizoaffective disorder, bipolar type (principal); F01.50 Vascular dementia, unspecified severity, without behavioral disturbance, psychotic disturbance, mood disturbance, and anxiety; F01.52 Vascular dementia, unspecified severity, with psychotic disturbance; R62.7 Adult failure to thrive; E11.9 Type 2 diabetes mellitus without complications; I10 Essential (primary) hypertension; E78.00 Pure hypercholesterolemia, unspecified; Z88.6 Allergy status to analgesic agent; Z79.84 Long term (current) use of oral hypoglycemic drugs; Z79.899 Other long term (current) drug therapy; Z79.82 Long term (current) use of aspirin; Z20.822 Contact with and (suspected) exposure to COVID-19; Z91.148 Patient's other noncompliance with medication regimen for other reason; F12.10 Cannabis abuse, uncomplicated
CPT/HCPCS: 36415; 71045; 85025; A9150